=== PATIENT | male | born 1965 ===

== ENCOUNTER 2017-07-31 22:18 | Emergency (ER) | payer OTHER, BC ==
[2017-07-31 23:45] VITALS: BP 126/64; PULSE 63; RESP 16; TEMP 98.1; O2SAT 100
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
== END 2017-08-01 03:34 | disposition home or self-care (01) ==
LOC: H.ER 22:18
DX: M54.5 Low back pain (principal); S13.4XXA Sprain of ligaments of cervical spine, initial encounter; V43.52XA Car driver injured in collision with other type car in traffic accident, initial encounter; Y92.410 Unspecified street and highway as the place of occurrence of the external cause